=== PATIENT | female | born 1990 | race Caucasian/White ===

== ENCOUNTER → 2016-11-01 | Outpatient (CLI) | payer BC ==
[~2016-11-01] MED LIST: NORE5TAB5 PO
== END | disposition home or self-care (01) ==
LOC: C.PAPS 08:26
PROVIDERS: ATTEND Obstetrics & Gynecology
DX: Z01.419 Encounter for gynecological examination (general) (routine) without abnormal findings (principal)

== ENCOUNTER → 2017-11-07 | Outpatient (CLI) | payer BC | END | disposition home or self-care (01) | LOC: C.PAPS 09:39 | PROVIDERS: ATTEND Obstetrics & Gynecology | DX: Z01.419 Encounter for gynecological examination (general) (routine) without abnormal findings (principal) ==

== ENCOUNTER → 2018-03-17 | Outpatient (CLI) | payer BC ==
[~2018-03-17] MED LIST changes: +METO-157 PO; -NORE5TAB5 PO; +ONDA-170 PO; +PRENTAB26 PO
[2018-03-17 12:21] LABS: BASO % 0.1 %; BASO ABS # 0.01 K/uL (0-0.2); EOS % 0.6 %; EOS ABS # 0.05 K/uL (0-0.5); HEMATOCRIT 38.6 % (37-47); HEMOGLOBIN 13.5 g/dL (12.0-16.0); IG# 0.01 K/uL (0.00-0.02); LYMPH % 15.5 %; LYMPH ABS # 1.39 K/uL (1.2-3.4); MEAN CELL VOLUME 89.1 fL (80-100); MEAN CORPUSCULAR HEMOGLOBIN 31.2 pg (25-34); MEAN PLATELET VOLUME 10.4 fL (7.4-10.4); MONO % 5.2 %; MONO ABS # 0.47 K/uL (0.11-0.59); NEUT % 78.5 %; NEUT ABS # 7.03 K/uL (1.4-6.5); PLATELET COUNT 184 K/uL (130-400); RED CELL DISTRIBUTION WIDTH CV 12.8 % (11.5-14.5); RED CELL DISTRIBUTION WIDTH SD 41.5 fL (36.4-46.3); WHITE BLOOD COUNT 8.96 K/uL (4.8-10.8)
== END | disposition home or self-care (01) ==
LOC: C.LAB 10:48
PROVIDERS: ATTEND Obstetrics & Gynecology
DX: Z34.82 Encounter for supervision of other normal pregnancy, second trimester (principal)

== ENCOUNTER 2018-08-04 20:11 | Observation (INO) | END 2018-08-07 12:10 | disposition home or self-care (01) | LOC: OPB 20:11 → 4S1 20:11 → 4S2 08-05 15:45 ==

== ENCOUNTER 2018-08-26 20:09 | Inpatient (IN) ==
--- NOTE | 2018-08-13 11:43 | History and Physical Report ---
DATE OF ADMISSION: 08/29/2018 CHIEF COMPLAINT: Persistent nausea and vomiting, repeat section. HISTORY OF PRESENT ILLNESS: The patient is a 28-year-old 3, para 2. She has a history of a shoulder dystocia with her first associated with a broken clavicle. She had a history of a previous section. She has history of endometriosis. All of her pregnancies were complicated by persistent nausea and vomiting, resistant to treatment. She has nausea and vomiting in her entire and it does not subside until after delivery. Present has been well dated with a first trimester ultrasound. She is due 09/02/2018. She has had a hard time with nausea and vomiting and episodes of dehydration. She has had 4 hospitalizations during her course for symptomatic dehydration and she is presently being scheduled for repeat low segment section. PAST MEDICAL HISTORY: She has 2 girls in good health. ALLERGIES: She has no known drug allergies. PAST SURGICAL HISTORY: She has had 2 laparoscopies, she has endometriosis. She has had her gallbladder removed. She has had a previous . She has had a tonsillectomy and adenoidectomy. She has a history of migraines. SOCIAL HISTORY: No smoking, no alcohol intake. 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 FAMILY HISTORY: Mom is 58, had DCIS, diagnosed at age 54. Dad is 58. Two brothers, 25 years old twins in good health. REVIEW OF SYSTEMS: History of migraines. No history of frequent or severe bladder infections, ear infections, nosebleed, sore throats. PHYSICAL EXAMINATION: GENERAL: Well-developed, well-nourished 28-year-old white female, alert, oriented x3 and cooperative in no acute distress. EYES: Conjunctivae are pink. Sclerae white, no evidence of jaundice. EARS: Had normal light reflex bilaterally. NOSE: Had normal mucosa. Septum is midline. There were no polyps. THROAT: No erythema or evidence of infection. Teeth are in good state of repair. HEAD: Normocephalic, normal distribution of hair. NECK: Supple. Trachea midline. Thyroid is not enlarged. There is no adenopathy appreciated. Both carotids are of good intensity. CHEST: Clear to auscultation and percussion. No wheezes, rales or rhonchi appreciated. HEART: Had regular rhythm. S1, S2 are normal. BREASTS: Normal. ABDOMEN: Soft and nontender. There is a term size fetus, vertex position, nontender, no CVA tenderness. PELVIC: Cervix to be posterior, closed, vertex presentation, floating. MUSCULOSKELETAL: Revealed no calf tenderness. IMPRESSIONS OF THIS CASE: History of shoulder dystocia associated with a broken clavicle, previous section, 2 previous diagnostic laparoscopies, history of symptomatic endometriosis, history of cholecystectomy, history of a tonsillectomy and adenoidectomy, previous section, intrauterine at term, history of hyperemesis gravidarum, history of several hospitalizations during for dehydration.
--- NOTE | 2018-08-21 12:08 | Anesthesiology Consultation ---
Date of Service August 21, 2018 Assessment & Plan (1) Encounter for pre-operative examination: Chart Review Chart Review: Acceptable Risk for Surgery (PENDING PREOP LABS (DONE [facility] 08/21/18 )) and Patient seen in Pre Admission Testing Teaching & Discussion Pre-Anesthesia Teaching/Discussion Notes: Instructed NPO after midnight before surgery,except medications with 15 cc of water. Medication instructions provided according to the PAT guidelines. History Surgery Operation Date: 08/27/18 07:30 Proposed Procedures p Section in LD - Jh Nelson MD Height/Weight Height: 5 ft 1 in Weight: 77.3 kg Allergies Allergy/AdvReac Type Severity Reaction Status Date / Time No Known Allergies Allergy Verified 08/15/18 10:04 Medications Home Medications Medication Instructions Recorded Confirmed Last Taken PNV cmb#95-ferrous fumarate-FA 1 dose PO DAILY 08/15/18 08/15/18 Unknown [] metoclopramide HCl [Reglan] 1 dose PO UD PRN 08/15/18 08/15/18 Unknown ondansetron HCl [Zofran] 4 mg PO UD PRN 08/15/18 08/15/18 Unknown potassium 1 dose PO BID 08/15/18 08/15/18 Unknown promethazine [Phenergan] 1 dose UD PRN 08/15/18 08/15/18 Unknown Past Medical History Medical History Endometriosis History of kidney stones Hyperemesis S/P IV FLUIDS SCHEDULED AT [facility] 08/15/18; IMPROVED Migraine Past Family History Family History Mother Family history of breast cancer Past Surgical History Surgical History History of section History of endoscopy History of laparoscopic cholecystectomy 11/19/15= D&C, LAPAROSCOPY, BLAS= GRADE VIEW 2, MAC 3, ETT 7.5 AT [facility] History of laparoscopy 2/2 ENDOMETRIOSIS History of ovarian cystectomy History of tonsillectomy and adenoidectomy Past Anesthesia History No Family Hx of Anesthesia Complications and Other "Slow to wake" with 2014 cholecystectomy. No issues with subsequent GA; 2016 D&C , laparoscopy, BLAS at [facility] with no noted anesthetic complications per anetshesia progress note. C/S (2014)- 2/2 shoulder dystocia with prior vaginal delivery. Per patient, good pain control but dyspnea after SAB (SAB x1 attempt at L3-L4 at [facility]). Per patient, hypotension with c/s; no apparent anesthetic complications per anesthesia progress notes. Baseline BP low to normal per patient. History of PONV Yes Motion Sickness Screening History of Motion Sickness: Yes Social History Smoking Status: Never smoker Do You Dip or Chew Tobacco: No Hx Alcohol Use: No Hx Substance Use: No substance use type: does not use Exercise / Class Metabolic Activity II 4-5 Yardwork/Stairs/Walk up hill Review of Systems Cough improved s/p abx. Patient denies chest pain, shortness of breath, dyspnea on exertion, wheezing, palpitations. Physical Exam Vital Signs VITALS BP 99/65 (chronic low to normal BP per patient) P 88 TEMP 98.6 SP02 98%RA RESP 16 Full neck and c-spine range of motion. Full TMJ range of motion. TMD 4 finger breaths Mallampati Score 3 Dentition: intact Lungs: clear throughout to auscultation Cardiac: regular rate and rhythm, no murmurs noted Spine: normal Extremities: no edema
--- NOTE | 2018-08-21 12:22 | PAT Medication Instructions ---
Medication Instructions Date of Service August 21, 2018 Home Medications PNV cmb#95-ferrous fumarate-FA 1 dose PO DAILY metoclopramide HCl [Reglan] 1 dose PO UD PRN ondansetron HCl [Zofran] 4 mg PO UD PRN potassium 1 dose PO BID promethazine [Phenergan] 1 dose UD PRN DO NOT take the morning of surgery PNV cmb#95-ferrous fumarate-FA 1 dose PO DAILY metoclopramide HCl [Reglan] 1 dose PO UD PRN potassium 1 dose PO BID Take morning of surgery With a small sip of water, OTHERWISE NOTHING TO EAT OR DRINK AFTER MIDNIGHT: ondansetron HCl [Zofran] 4 mg PO UD PRN (if needed) promethazine [Phenergan] 1 dose UD PRN (if needed) Other Notes If you have any questions please call us at [phone] or [phone] or [phone] or [phone]
[2018-08-21 13:03] LABS: Basophils # (auto) 0.02 K/uL (0-0.2); Basophils % (auto) 0.2 %; Eosinophils # (auto) 0.07 K/uL (0-0.5); Eosinophils % (auto) 0.6 %; Immature Granulocytes # (auto) 0.13 K/uL (0.00-0.02); Immature Granulocytes % (auto) 1.2 %; Lymphocytes # (auto) 1.81 K/uL (1.2-3.4); Lymphocytes % (auto) 16.5 %; Mean Corpuscular Hgb Conc 33.3 g/dL (32-36); Mean Corpuscular Volume 89.6 fL (80-100); Mean Platelet Volume 11.2 fL (7.4-10.4); Monocytes # (auto) 1.06 K/uL (0.11-0.59); Monocytes % (auto) 9.6 %; Neutrophils % (auto) 71.9 %; Platelet Count 169 K/uL (130-400); RDW Standard Deviation 46.5 fL (36.4-46.3); Red Blood Count 4.02 M/uL (4.2-5.4); White Blood Count 10.99 K/uL (4.8-10.8)
[2018-08-21 13:11] LABS: BUN Creatinine Ratio 11.5 (10-20); Blood Urea Nitrogen 5 mg/dl (7-18); Carbon Dioxide 24 mmol/L (21-32); Chloride 106 mmol/L (98-107); Creatinine Clr Calc Pharmacy 169.8 ml/min; Est GFR (African American) > 150.0; Est GFR (Non-African American) 134.4; Glucose 82 mg/dl (70-99); Potassium 3.9 mmol/L (3.5-5.1); Sodium 134 mmol/L (136-145)
[2018-08-21 13:17] LABS: INR 0.9 (0.9-1.1); Partial Thromboplastin Ratio 0.9; Prothrombin Time 9.5 Seconds (9.0-12.0)
[2018-08-26] MEDS ORDERED: LACTATED RINGER'S 1,000 ML IV SCH ×3 (20:30→23:45)
[2018-08-26 20:51] LABS: Basophils # (auto) 0.02 K/uL (0-0.2); Basophils % (auto) 0.1 %; Eosinophils # (auto) 0.06 K/uL (0-0.5); Eosinophils % (auto) 0.4 %; Hematocrit (blood only) 34.9 % (37-47); Hemoglobin 11.6 g/dL (12.0-16.0); Immature Granulocytes # (auto) 0.11 K/uL (0.00-0.02); Immature Granulocytes % (auto) 0.8 %; Lymphocytes # (auto) 2.05 K/uL (1.2-3.4); Lymphocytes % (auto) 15.4 %; Mean Corpuscular Volume 88.4 fL (80-100); Mean Platelet Volume 11.2 fL (7.4-10.4); Monocytes # (auto) 1.42 K/uL (0.11-0.59); Monocytes % (auto) 10.6 %; Neutrophils # (auto) 9.69 K/uL (1.4-6.5); Neutrophils % (auto) 72.7 %; Platelet Count 184 K/uL (130-400); RDW Coefficient of Variation 13.9 % (11.5-14.5); RDW Standard Deviation 44.8 fL (36.4-46.3); Red Blood Count 3.95 M/uL (4.2-5.4); White Blood Count 13.35 K/uL (4.8-10.8)
[2018-08-26 20:53] LABS: Mean Corpuscular Hgb Conc 33.2 g/dL (32-36)
[2018-08-26 21:04] LABS: Partial Thromboplastin Ratio 0.9; Partial Thromboplastin Time 23.9 Seconds (21.0-31.0); Prothrombin Time 9.8 Seconds (9.0-12.0)
[2018-08-26 21:10] LABS: BUN Creatinine Ratio 14.1 (10-20); Blood Urea Nitrogen 7 mg/dl (7-18); Calcium 9.1 mg/dl (8.5-10.1); Carbon Dioxide 22 mmol/L (21-32); Chloride 103 mmol/L (98-107); Creatinine Clr Calc Pharmacy 156.2 ml/min; Est GFR (African American) > 150.0; Est GFR (Non-African American) 130.8; Glucose 70 mg/dl (70-99); Potassium 3.3 mmol/L (3.5-5.1); Sodium 136 mmol/L (136-145)
[2018-08-26] MEDS ORDERED: cefOXitin 2,000 MG in DEXTROSE 5% 50 ML IV SCH (21:30)
[2018-08-26] MEDS ORDERED: CITRIC ACID/SODIUM CITRATE 15 ML UDC PO SCH (21:30)
--- NOTE | 2018-08-26 21:30 | Anesthesiology Consultation ---
Date of Service August 26, 2018 Assessment & Plan (1) Encounter for pre-operative examination: Chart Review Chart Review: Acceptable Risk for Surgery and Patient NOT seen in Pre Admission Testing Consults Requested none NPO Date Last Intake of Fluids: 08/26/18 Time Last Intake of Fluids: 16:00 Date Last Intake of Solids: 08/26/18 Time Last Intake of Solids: 16:00 History Surgery Operation Date: 08/26/18 20:15 Proposed Procedures p Section in LD - Jh Nelson MD Operation Date: 08/27/18 07:30 Proposed Procedures p Section - Jh Nelson MD Height/Weight Height: 5 ft 1 in Weight: 77.3 kg Allergies Allergy/AdvReac Type Severity Reaction Status Date / Time No Known Allergies Allergy Verified 08/26/18 20:34 Medications Home Medications Medication Instructions Recorded Confirmed Last Taken PNV cmb#95-ferrous fumarate-FA 1 dose PO DAILY 08/15/18 08/26/18 08/25/18 20:00 [] metoclopramide HCl [Reglan] 1 dose PO UD PRN 08/15/18 08/26/18 08/19/18 ondansetron HCl [Zofran] 4 mg PO UD PRN 08/15/18 08/26/18 08/23/18 potassium 1 dose PO BID 08/15/18 08/26/18 08/25/18 20:00 promethazine [Phenergan] 1 dose UD PRN 08/15/18 08/23/18 Unknown Active Medications Generic Name Dose Route Start Last Admin Trade Name Freq PRN Reason Stop Dose Admin Lactated Ringer's 1,000 mls @ 125 mls/hr 08/26/18 21:19 08/26/18 21:31 Lr IV 09/25/18 21:18 125 mls/hr .Q8H WILFRED Administration Past Medical History Medical History Hyperemesis gravidarum Endometriosis History of kidney stones Hyperemesis S/P IV FLUIDS SCHEDULED AT [facility] 08/15/18; IMPROVED Migraine Past Family History Family History Mother Family history of breast cancer Past Surgical History Surgical History History of section History of endoscopy History of laparoscopic cholecystectomy 11/19/15= D&C, LAPAROSCOPY, BLAS= GRADE VIEW 2, MAC 3, ETT 7.5 AT [facility] History of laparoscopy 2/2 ENDOMETRIOSIS History of ovarian cystectomy History of tonsillectomy and adenoidectomy Past Anesthesia History "Slow to wake" with 2014 cholecystectomy. No issues with subsequent GA; 2015 D&C , laparoscopy, BLAS at [facility] with no noted anesthetic complications per anetshesia progress note. C/S (2014)- 2/2 shoulder dystocia with prior vaginal delivery. Per patient, good pain control but dyspnea after SAB (SAB x1 attempt at L3-L4 at [facility]). Per patient, hypotension with c/s; no apparent anesthetic complications per anesthesia progress notes. Baseline BP low to normal per patient. Social History Smoking Status: Never smoker Do You Dip or Chew Tobacco: No Hx Alcohol Use: No Hx Substance Use: No substance use type: does not use Review of Systems Respiratory: no cough and no dyspnea Cardiovascular: no chest pain Physical Exam Vital Signs Last Vital Signs Temp 36.8 C 08/26/18 20:41 Pulse 113 H 08/26/18 20:41 Resp 18 08/26/18 20:41 BP 115/73 08/26/18 20:41 Testing Laboratory Results 08/26/18 20:36 08/26/18 20:36 Blood Type O Negative 08/21/18 12:25 Antibody Screen POSITIVE A 08/21/18 12:25 PT 9.8 Seconds (9.0-12.0) 08/26/18 20:36 INR 1.0 (0.9-1.1) 08/26/18 20:36 APTT 23.9 Seconds (21.0-31.0) 08/26/18 20:36
--- NOTE | 2018-08-26 21:41 | Anesthesiology Consultation ---
Date of Service August 26, 2018 Assessment & Plan Chart Review Chart Review: Acceptable Risk for Surgery and Patient NOT seen in Pre Admission Testing Consults Requested none ASA ASA2 NPO Date Last Intake of Fluids: 08/26/18 Time Last Intake of Fluids: 16:00 Date Last Intake of Solids: 08/26/18 Time Last Intake of Solids: 16:00 History Surgery Operation Date: 08/26/18 20:15 Proposed Procedures p Section in LD - Jh Nelson MD Operation Date: 08/27/18 07:30 Proposed Procedures p Section - Jh Nelson MD Height/Weight Height: 5 ft 1 in Weight: 77.3 kg Allergies Allergy/AdvReac Type Severity Reaction Status Date / Time No Known Allergies Allergy Verified 08/26/18 20:34 Medications Home Medications Medication Instructions Recorded Confirmed Last Taken PNV cmb#95-ferrous fumarate-FA 1 dose PO DAILY 08/15/18 08/26/18 08/25/18 20:00 [] metoclopramide HCl [Reglan] 1 dose PO UD PRN 08/15/18 08/26/18 08/19/18 ondansetron HCl [Zofran] 4 mg PO UD PRN 08/15/18 08/26/18 08/23/18 potassium 1 dose PO BID 08/15/18 08/26/18 08/25/18 20:00 promethazine [Phenergan] 1 dose UD PRN 08/15/18 08/23/18 Unknown Active Medications Generic Name Dose Route Start Last Admin Trade Name Freq PRN Reason Stop Dose Admin Lactated Ringer's 1,000 mls @ 125 mls/hr 08/26/18 21:19 08/26/18 21:31 Lr IV 09/25/18 21:18 125 mls/hr .Q8H WILFRED Administration Past Medical History Medical History Hyperemesis gravidarum Endometriosis History of kidney stones Hyperemesis S/P IV FLUIDS SCHEDULED AT [facility] 08/15/18; IMPROVED Migraine Past Family History Family History Mother Family history of breast cancer Past Surgical History Surgical History History of section History of endoscopy History of laparoscopic cholecystectomy 11/19/15= D&C, LAPAROSCOPY, BLAS= GRADE VIEW 2, MAC 3, ETT 7.5 AT [facility] History of laparoscopy 2/2 ENDOMETRIOSIS History of ovarian cystectomy History of tonsillectomy and adenoidectomy Past Anesthesia History "Slow to wake" with 2014 cholecystectomy. No issues with subsequent GA; 2016 D&C , laparoscopy, BLAS at [facility] with no noted anesthetic complications per anetshesia progress note. C/S (2014)- 2/2 shoulder dystocia with prior vaginal delivery. Per patient, good pain control but dyspnea after SAB (SAB x1 attempt at L3-L4 at [facility]). Per patient, hypotension with c/s; no apparent anesthetic complications per anesthesia progress notes. Baseline BP low to normal per patient. Social History Smoking Status: Never smoker Do You Dip or Chew Tobacco: No Hx Alcohol Use: No Hx Substance Use: No substance use type: does not use Physical Exam Vital Signs Last Vital Signs Temp 36.8 C 08/26/18 20:41 Pulse 113 H 08/26/18 20:41 Resp 18 08/26/18 20:41 BP 115/73 08/26/18 20:41 Testing Laboratory Results 08/26/18 20:36 08/26/18 20:36 Blood Type O Negative 08/21/18 12:25 Antibody Screen POSITIVE A 08/21/18 12:25 PT 9.8 Seconds (9.0-12.0) 08/26/18 20:36 INR 1.0 (0.9-1.1) 08/26/18 20:36 APTT 23.9 Seconds (21.0-31.0) 08/26/18 20:36
[2018-08-26] MEDS ORDERED: NALOXONE HCL 0.4 MG/1 ML VIAL/CARP IV PRN (21:43)
[2018-08-26] MEDS ORDERED: NALOXONE HCL 0.08 MG in SYRINGE 1.8 ML IV PRN (21:43)
[2018-08-26] MEDS ORDERED: ePHEDrine sulfate 50 MG/ML AMP IV PRN (21:43)
[2018-08-26] MEDS ORDERED: NALOXONE HCL 1 MG in SODIUM CHLORIDE 0.9% 1000ML 1,000 ML IV PRN (21:43)
[2018-08-26] MEDS ORDERED: LACTATED RINGER'S 500 ML IV PRN (21:43)
[2018-08-26] MEDS ORDERED: ONDANSETRON INJ 2 MG/ML 2 ML VIAL IV PRN (21:43)
[2018-08-26] MEDS ORDERED: MoRPHine SULFATE PF 1 MG/ML 10 ML AMP/VIAL INT SPINAL ONE (21:43)
[2018-08-26] MEDS ORDERED: MoRPHine SULFATE 2 MG/ML CARP IV PRN (21:43)
[2018-08-26] MEDS ORDERED: DC INTRASPINAL MORPHINE SCH (21:45)
[2018-08-26] MEDS ORDERED: NO NARCOTICS OR SEDATIVES SCH (21:45)
[2018-08-26] MEDS ORDERED: SODIUM CHLORIDE 0.9% 1000ML 1,000 ML IV SCH (21:45)
[2018-08-26] MEDS ORDERED: MoRPHine SULFATE PF 1 MG/ML 10 ML AMP/VIAL ONE (21:49)
[2018-08-26] MEDS ORDERED: OXYTOCIN 10 UNITS/ML VIAL ONE ×2 (23:15→23:38)
[2018-08-26] MEDS ORDERED: ONDANSETRON INJ 2 MG/ML 2 ML VIAL ONE (23:38)
[2018-08-26] MEDS ORDERED: SENNA 8.6 MG TAB PO PRN (23:49)
[2018-08-26] MEDS ORDERED: BENZOCAINE 20% AER SPR 82.5 GM CAN EXT PRN (23:49)
[2018-08-26] MEDS ORDERED: PROMETHAZINE HCL 25 MG in SODIUM CHLORIDE 0.9% 50 ML IV PRN (23:49)
[2018-08-26] MEDS ORDERED: DIPHTHERIA/TETANUS/PERTUSSIS 0.5 ML SYR/VIAL IM ONE (23:49)
[2018-08-26] MEDS ORDERED: HYDROCORTISONE ACETATE 25 MG SUPP PR PRN (23:49)
[2018-08-26] MEDS ORDERED: SUPERCREAM 0.870% 15 GM JAR EXT PRN (23:49)
[2018-08-26] MEDS ORDERED: MAGNESIUM HYDROXIDE SUSP 30 ML UDC PO PRN (23:49)
--- NOTE | 2018-08-27 00:01 | Post Operative Brief Note ---
Immediate Post Op Note v1 Date of Surgery August 26, 2018 Pre & Post Diagnosis Operation Date: 08/26/18 20:15 <No data on this case meets the specified criteria> Operation Date: 08/27/18 07:30 <No data on this case meets the specified criteria> Procedure Operation Date: 08/26/18 20:15 <No data on this case meets the specified criteria> Operation Date: 08/27/18 07:30 <No data on this case meets the specified criteria> Surgeon Jh Nelson MD Tobacco Scrap Sifter dr dean Estimated Blood Loss 700 Findings Consistent with Post-Op Diagnosis clear amniotic fluid Fluids 2200 Specimens placenta Drains Delarosa Catheter Complications none Disposition Accompanied Patient To Recovery: No Disposition: L&D Overlapping Procedure I was immediately available: during the entire case.
--- NOTE | 2018-08-27 00:10 | Anesthesiology Progress Note ---
Date of Service August 27, 2018 Anesthesia Post Procedure Vital Signs Vital Signs: Temp Pulse Resp BP Pulse Ox 08/27/18 00:04 82 96 08/27/18 00:03 101 H 111/53 L 08/26/18 20:41 36.8 C 113 H 18 115/73 08/26/18 20:18 113 H 115/73 Notes Mental Status: alert / awake / arousable Patient Amnestic to Procedure: Yes Nausea / Vomiting: adequately controlled Pain: adequately controlled Airway Patency, RR, SpO2: stable & adequate BP & HR: stable & adequate Hydration State: stable & adequate Anesthetic Complications: no major complications apparent and Pt Satisfied with anesthetic care
[2018-08-27] MEDS: KETOROLAC 30 MG/ML VIAL IV PRN ×3 (00:49→19:25)
[2018-08-27] MEDS: DiphenhydrAMINE HCL 50 MG/ML VIAL IV PRN ×2 (00:55→06:39)
[2018-08-27] MEDS: OXYTOCIN 20 UNITS in LACTATED RINGER'S 1,000 ML IV SCH ×2 (00:58→10:35)
[2018-08-27] MEDS: MEPERIDINE HCL 25 MG/ML CARP IV PRN ×2 (02:13→03:53)
[2018-08-27] MEDS: NALBUPHINE HCL INJ 10 MG/ML AMP IV PRN ×2 (02:16→03:53)
--- NOTE | 2018-08-27 04:44 | Operative Report ---
DATE OF OPERATION: 08/27/2018 PROCEDURE: Repeat low segment section. INDICATIONS FOR SURGERY: Previous , active labor, intrauterine 39 weeks gestation, prior history of shoulder dystocia. PREOPERATIVE DIAGNOSES: Previous , shoulder dystocia, labor. SURGEON: Masood MATHEWS MD PST MANAGER: Cal Alcala MD ESTIMATED BLOOD LOSS: 700 mL. ANESTHESIA: Spinal. OPERATIVE FINDINGS AND PROCEDURE: The patient was brought to the OR table, correctly identified by armband and conversation. It took several attempts to get spinal anesthesia in. Once it was in, the Delarosa catheter was inserted into the bladder, connected to gravity drainage. Lower abdomen and upper thigh was painted with an alcohol based sterilizing solution. The patient was draped in the usual sterile fashion. Level was checked and found to be adequate. An incision was made through a previous Pfannenstiel scar, was carried down to the anterior fascia by sharp dissection. Hemostasis was secured by electrocauterization. Fascia was incised transversely, from the underlying muscle by blunt and sharp dissection. Recti muscles were in the midline exposing peritoneum, which was carefully raised and entered. Incision was made above the vesicouterine fold. Lower uterine segment was scored with a knife and then entered with scissors. Clear amniotic fluid was seen at this time. Whittling Room Operator's hand was inserted into uterine cavity. The vectis retractor was inserted to the head and with fundal pressure, the was delivered. Shoulders were delivered without difficulty. was suctioned through the mouth and the nose. Cord was clamped and cut. The infant was immediately attended to by the local company refrigerated truck driver who was present and scrubbed at the time of delivery. Cord blood was taken. The placenta was removed manually. Uterus, tubes, and ovaries were brought out through the incision. The myometrium was approximated with continuous suture of chromic catgut. A layer of suture was placed over the myometrial approximation to approximate the fascial layer, this was heavy duty Vicryl, and then the peritoneal edges were restored and a bladder flap was restored with a running 3-0 chromic. Pelvis was cleansed of all blood clots and debris. Tubes and ovaries were inspected and found to be normal. Uterus, tubes, and ovaries were inserted into the abdominal cavity. Careful anatomical approximation of the anterior abdominal wall was performed. Peritoneum was closed with a continuous suture of chromic catgut. Recti muscles were approximated with interrupted [id number] suture of chromic catgut. The fascia was closed with continuous interlocking suture of Vicryl on each side, tied in the midline. SubQ was approximated with plain and skin edges were approximated with staple clips. The patient tolerated the procedure well and left the OR in good condition. I attest to the content of the Intraoperative Record and any orders documented therein. Any exception s are noted below.
[2018-08-27 07:22] LABS: Basophils # (auto) 0.01 K/uL (0-0.2); Basophils % (auto) 0.1 %; Eosinophils # (auto) 0.05 K/uL (0-0.5); Eosinophils % (auto) 0.4 %; Hematocrit (blood only) 29.4 % (37-47); Hemoglobin 9.8 g/dL (12.0-16.0); Immature Granulocytes # (auto) 0.07 K/uL (0.00-0.02); Immature Granulocytes % (auto) 0.5 %; Mean Corpuscular Hgb Conc 33.3 g/dL (32-36); Mean Platelet Volume 10.7 fL (7.4-10.4); Monocytes # (auto) 1.25 K/uL (0.11-0.59); Monocytes % (auto) 8.8 %; Neutrophils # (auto) 11.07 K/uL (1.4-6.5); Neutrophils % (auto) 78.2 %; Platelet Count 153 K/uL (130-400); RDW Coefficient of Variation 14.1 % (11.5-14.5); Red Blood Count 3.34 M/uL (4.2-5.4); White Blood Count 14.15 K/uL (4.8-10.8)
--- NOTE | 2018-08-27 10:28 | Obstetrical Progress Note ---
Date of Service August 27, 2018 Physical Exam 2 Vital Signs (Past 24 Hours): Last Vital Signs Temp 36.8 C 08/27/18 09:20 Pulse 73 08/27/18 09:20 Resp 18 08/27/18 09:20 BP 95/58 L 08/27/18 09:20 Pulse Ox 97 08/27/18 09:20 Physical Exam: abdomen soft and non tender bowel sounds present vaginal bleeding scant urine clear out put good no calf tenderness
--- NOTE | 2018-08-27 12:38 | Anesthesiology Progress Note ---
Date of Service August 27, 2018 Anesthesia Post Procedure Vital Signs Vital Signs: Temp Pulse Pulse Resp BP BP Pulse Ox 08/27/18 09:20 98.2 F 73 18 95/58 L 97 08/27/18 06:15 16 95 08/27/18 05:20 18 98 08/27/18 04:15 16 96 08/27/18 03:30 98.2 F 83 18 91/50 L 98 08/27/18 03:24 99 H 99 08/27/18 03:19 96 H 98 08/27/18 03:14 84 96 08/27/18 03:11 98.1 F 78 71 18 96/55 L 96/55 L 96 08/27/18 03:09 83 95 08/27/18 03:04 87 96 08/27/18 03:00 87 94 08/27/18 02:59 88 96 08/27/18 02:54 96 H 95 08/27/18 02:49 79 95 08/27/18 02:44 84 99 08/27/18 02:41 86 113/64 08/27/18 02:39 82 96 08/27/18 02:34 80 97 08/27/18 02:29 73 95 08/27/18 02:27 75 93 08/27/18 02:24 78 95 08/27/18 02:19 73 99 08/27/18 02:14 69 100 08/27/18 02:11 65 93/51 L 08/27/18 02:09 70 100 08/27/18 02:04 68 100 08/27/18 02:02 18 08/27/18 01:59 64 100 08/27/18 01:56 64 109/57 L 08/27/18 01:54 70 100 08/27/18 01:49 84 100 08/27/18 01:44 68 100 08/27/18 01:41 187 H 165/106 H 08/27/18 01:39 75 100 08/27/18 01:34 69 100 08/27/18 01:32 18 08/27/18 01:29 69 100 08/27/18 01:24 78 100 08/27/18 01:19 67 100 08/27/18 01:14 67 100 08/27/18 01:13 76 97/54 L 08/27/18 01:09 76 100 08/27/18 01:05 85 219/128 H 08/27/18 01:04 62 99 08/27/18 01:02 16 08/27/18 00:59 75 98 08/27/18 00:54 72 97 08/27/18 00:52 18 08/27/18 00:49 104 H 96 08/27/18 00:44 79 144/94 H 96 08/27/18 00:42 18 08/27/18 00:39 81 96 08/27/18 00:34 90 96 08/27/18 00:32 18 08/27/18 00:29 100 H 96 08/27/18 00:24 90 150/76 H 96 08/27/18 00:19 83 97 08/27/18 00:14 88 101/63 97 08/27/18 00:09 92 H 95 08/27/18 00:04 82 96 08/27/18 00:03 101 H 111/53 L 08/27/18 00:02 97.7 F 18 08/26/18 20:41 98.2 F 113 H 18 115/73 08/26/18 20:18 113 H 115/73 Pain Intensity Bilateral Abdomen: Pain Intensity: 6 Notes Mental Status: alert / awake / arousable and participated in evaluation Nausea / Vomiting: adequately controlled Pain: adequately controlled Airway Patency, RR, SpO2: stable & adequate BP & HR: stable & adequate Hydration State: stable & adequate Neuraxial Anesthesia: was administered, sensory block resolved and see Notes below Anesthetic Complications: see Notes below Notes: The patient was evaluated POD #1. The patient states having a crepitus like sensation on the R side of her back near the spinal insertion site. She also states some paresthesias from the needle insertion site down to her R buttock. She denies any headache or lower extremity numbness or weakness. She has some back tenderness near the spinal insertion sites. The patients lower extremities are neurologically intact. The patient has not started ambulating yet due to duramorph precautions. I instructed her to notify the nurse if she has any issues with ambulating. I told her that we would evaluate her again tomorrow. I spoke with the labor and delivery nurse to update my conversation with the patient.
[2018-08-27] MEDS: FERROUS SULFATE 325 MG TAB PO SCH (13:20)
[2018-08-27] MEDS: DOCUSATE SODIUM 100 MG CAP PO SCH ×2 (13:20→21:35)
[2018-08-27] MEDS: SIMETHICONE 80 MG CHEW PO SCH ×4 (13:20→21:35)
[2018-08-27] MEDS: PRENATAL VITAMIN 1 TAB PO SCH (13:20)
[2018-08-27] MEDS ORDERED: BISACODYL 5 MG TABEC PO SCH (20:00)
[2018-08-27] MEDS ORDERED: Nursing to Pharmacy Communication ONE (20:16)
[2018-08-27] MEDS ORDERED: ZOLPIDEM TARTRATE 5 MG TAB PO PRN (21:42)
[2018-08-27] MEDS ORDERED: MEPERIDINE HCL 50 MG/ML CARP IV PRN (21:42)
[2018-08-27] MEDS ORDERED: KETOROLAC 30 MG/ML VIAL IV PRN (21:42)
[2018-08-27] MEDS ORDERED: OXYCODONE/ACETAMINOPHEN 5mg/325mg TAB PO PRN (21:42)
[2018-08-27] MEDS ORDERED: ONDANSETRON INJ 2 MG/ML 2 ML VIAL IV PRN (21:42)
[2018-08-27] MEDS ORDERED: DiphenhydrAMINE HCL 50 MG/ML VIAL IV PRN (21:42)
[2018-08-28] MEDS: IBUPROFEN 600 MG TAB PO PRN ×5 (00:26→23:55)
[2018-08-28] MEDS: OXYCODONE/ACETAMINOPHEN 5mg/325mg TAB PO PRN ×6 (00:27→20:14)
[2018-08-28] MEDS: FERROUS SULFATE 325 MG TAB PO SCH (08:27)
[2018-08-28] MEDS: GABAPENTIN 300 MG CAP PO SCH ×2 (08:27→21:11)
[2018-08-28] MEDS: SIMETHICONE 80 MG CHEW PO SCH ×4 (08:27→21:11)
[2018-08-28] MEDS: PRENATAL VITAMIN 1 TAB PO SCH (08:27)
[2018-08-28] MEDS: DOCUSATE SODIUM 100 MG CAP PO SCH ×2 (08:28→21:11)
--- NOTE | 2018-08-28 08:30 | Anesthesiology Progress Note ---
Date of Service August 28, 2018 Subjective Pt is POD #2 s/p under SAB. Pt is still having a lot of tenderness on the right side of her back along the puncture verduzco. Pt also reports having intermittent numbness and burning sensation down to her right buttock. Burning sensation has not gotten worse but has not improved. She also has decreased sensation on the lateral side of her right thigh. On strength evaluation, pt is 5/5 on both plantar flexion and extension (R and L), 5/5 extension/flexion of BLE., 4/5 on R hip flexion/extension, 5/5 on L hip flexion/extension. Pt states that she has been up and ambulating without noticing any weakness. Discussed with patient to report to the nurse if having any worsening symptoms. Also discussed with patient about consulting neurologist to evaluate her symptoms. Pt understood and agreed with plan. Plan was also discussed with the nursing staff. Physical Exam Vital Signs Last Vital Signs Temp 37.0 C 08/28/18 07:34 Pulse 71 08/28/18 07:34 Resp 18 08/28/18 07:34 BP 95/61 L 08/28/18 07:34 Pulse Ox 95 08/28/18 07:34 Results & Data Medications Administered Docusate Sodium (Colace) 100 mg PO BID [facility] Stop: 09/26/18 08:59 Last Admin: 08/27/18 21:35 Dose: 100 mg Admin: 08/27/18 13:20 Dose: Not Given Ferrous Sulfate (Feosol) 325 mg PO QAM WILFRED Stop: 09/26/18 08:59 Last Admin: 08/27/18 13:20 Dose: Not Given Lactated Ringer's (Lr) 1,000 mls @ 125 mls/hr IV .Q8H [facility] Stop: 09/25/18 21:18 Last Infusion: 08/26/18 21:41 Dose: 0 mls/hr Admin: 08/26/18 21:31 Dose: 125 mls/hr Promethazine HCl 25 mg/ Sodium (Chloride) 51 mls @ 204 mls/hr IV Q4H PRN PRN Reason: Nausea And Vomiting Stop: 09/25/18 23:48 Last Admin: 08/27/18 02:45 Dose: 204 mls/hr Ibuprofen (Motrin) 600 mg PO Q4H PRN PRN Reason: Pain Stop: 09/25/18 23:48 Last Admin: 08/28/18 04:19 Dose: 600 mg Admin: 08/28/18 00:26 Dose: 600 mg Oxycodone/Acetaminophen (Percocet 5mg/325mg) 1 - 2 tab PO Q4H PRN PRN Reason: Pain Stop: 09/10/18 20:19 Last Admin: 08/28/18 04:19 Dose: 1 tab Admin: 08/28/18 00:27 Dose: 1 tab Prenat Multivit/[place]/Iron/Folic Ac ( Vitamin) 1 tab PO QAM [facility] Stop: 09/26/18 08:59 Last Admin: 08/27/18 13:20 Dose: Not Given Simethicone (Mylicon) 80 mg PO QID [facility] Stop: 09/26/18 08:59 Last Admin: 08/27/18 21:35 Dose: 80 mg Admin: 08/27/18 17:59 Dose: 80 mg Admin: 08/27/18 17:33 Dose: Not Given Admin: 08/27/18 13:20 Dose: Not Given
[2018-08-28 09:02] LABS: Hemoglobin 9.9 g/dL (12.0-16.0)
--- NOTE | 2018-08-28 11:32 | Obstetrical Progress Note ---
Date of Service August 28, 2018 Physical Exam 2 Vital Signs (Past 24 Hours): Last Vital Signs Temp 37.0 C 08/28/18 07:34 Pulse 71 08/28/18 07:34 Resp 18 08/28/18 07:34 BP 95/61 L 08/28/18 07:34 Pulse Ox 95 08/28/18 07:34 Physical Exam: abdomen soft and non tender vaginal bleeding scant to moderate incision is clean and dry no calf tenderness patient complains of back pain
--- NOTE | 2018-08-28 15:30 | Anesthesiology Progress Note ---
Date of Service August 28, 2018 Post op day #2. The patient was standing and rocking the baby shifting her weight from her left foot to her right and back again. She complains of back pain on on her right lumber area with intermittent radiation to her right hip. Also complains of a pins and needles paresthesia over the right lateral hip. She does not have the sense of weakness in her hip when she ambulates. On physical exam I noted the following: PERRL, EOM intact,CN intact, nl finger to nose, nl balance with eyes closed and hands out in front, decreased soft touch and sharp touch right lateral proximal thigh and hip, nl sensation on left. + SLR on right, negative on left. Motor: shoulder abductors 5/5 B/L, elbow flexion 5- B/L, elbow extension 4/5 B/L. Right hip flexion 4- right, 4+ left. Hip extension 4 right, 5 left. Knee extension 5 B/L. Dorsiflexion 5 B/L. Plantar flexion 5 B/L. There was no foot drop. She has had one dose of neurontin 300 mg with some relief. A neurologist, Dr. Cueto has been consulted and will see her tomorrow morning. I will be making daily rounds on her. Physical Exam Vital Signs Last Vital Signs Temp 37.3 C 08/28/18 12:20 Pulse 87 08/28/18 12:20 Resp 18 08/28/18 12:20 BP 110/71 08/28/18 12:20 Pulse Ox 98 08/28/18 12:20 Results & Data Medications Administered Docusate Sodium (Colace) 100 mg PO BID [facility] Stop: 09/26/18 08:59 Last Admin: 08/28/18 08:28 Dose: 100 mg Admin: 08/27/18 21:35 Dose: 100 mg Admin: 08/27/18 13:20 Dose: Not Given Ferrous Sulfate (Feosol) 325 mg PO QAM [facility] Stop: 09/26/18 08:59 Last Admin: 08/28/18 08:27 Dose: 325 mg Admin: 08/27/18 13:20 Dose: Not Given Gabapentin (Neurontin) 300 mg PO BID [facility] Stop: 09/27/18 08:59 Last Admin: 08/28/18 08:27 Dose: 300 mg Lactated Ringer's (Lr) 1,000 mls @ 125 mls/hr IV .Q8H [facility] Stop: 09/25/18 21:18 Last Infusion: 08/26/18 21:41 Dose: 0 mls/hr Admin: 08/26/18 21:31 Dose: 125 mls/hr Promethazine HCl 25 mg/ Sodium (Chloride) 51 mls @ 204 mls/hr IV Q4H PRN PRN Reason: Nausea And Vomiting Stop: 09/25/18 23:48 Last Admin: 08/27/18 02:45 Dose: 204 mls/hr Ibuprofen (Motrin) 600 mg PO Q4H PRN PRN Reason: Pain Stop: 09/25/18 23:48 Last Admin: 08/28/18 14:28 Dose: 600 mg Admin: 08/28/18 10:20 Dose: 600 mg Admin: 08/28/18 04:19 Dose: 600 mg Admin: 08/28/18 00:26 Dose: 600 mg Oxycodone/Acetaminophen (Percocet 5mg/325mg) 1 - 2 tab PO Q4H PRN PRN Reason: Pain Stop: 09/10/18 20:19 Last Admin: 08/28/18 12:15 Dose: 1 tab Admin: 08/28/18 08:28 Dose: 1 tab Admin: 08/28/18 04:19 Dose: 1 tab Admin: 08/28/18 00:27 Dose: 1 tab Prenat Multivit/Lowes/Iron/Folic Ac ( Vitamin) 1 tab PO QAM [facility] Stop: 09/26/18 08:59 Last Admin: 08/28/18 08:27 Dose: 1 tab Admin: 08/27/18 13:20 Dose: Not Given Simethicone (Mylicon) 80 mg PO QID [facility] Stop: 09/26/18 08:59 Last Admin: 08/28/18 12:19 Dose: 80 mg Admin: 08/28/18 08:27 Dose: 80 mg Admin: 08/27/18 21:35 Dose: 80 mg Admin: 08/27/18 17:59 Dose: 80 mg Admin: 08/27/18 17:33 Dose: Not Given Admin: 08/27/18 13:20 Dose: Not Given
[2018-08-28] MEDS ORDERED: BISACODYL 10 MG SUPP PR PRN (23:49)
[2018-08-29] MEDS: OXYCODONE/ACETAMINOPHEN 5mg/325mg TAB PO PRN ×5 (01:00→20:32)
[2018-08-29] MEDS: IBUPROFEN 600 MG TAB PO PRN ×5 (03:33→22:12)
--- NOTE | 2018-08-29 07:31 | Obstetrical Progress Note ---
Date of Service August 29, 2018 Physical Exam 2 Vital Signs (Past 24 Hours): Last Vital Signs Temp 36.8 C 08/28/18 23:45 Pulse 93 H 08/28/18 23:45 Resp 18 08/28/18 23:45 BP 96/63 L 08/28/18 23:45 Pulse Ox 98 08/28/18 12:20 Physical Exam: abdomen soft and non tender vaginal bleeding scant to moderate incision is clean and dry numbness and some decreased motion of right foot hgb 9.9
--- NOTE | 2018-08-29 08:17 | Neurology Consultation ---
Date of Consultation August 29, 2018 Assessment & Plan (1) Right leg weakness: Patient has the acute onset, post spinal anesthesia procedure for C- section, of lumbar spine pain radiating to the right buttocks and into the right lower extremity with right lower extremity weakness, numbness, and dysesthesias. There is no specific neurologic pattern to this and her distribution of weakness , numbness, and pain involves multiple nerve roots. There are no other neurologic deficits and there are no meningeal signs or encephalopathy. So far, the patient has not made any significant improvements 3 days after the procedure. Fortunately, her weakness and dysesthesias are [id number] and she still has functioning of her muscles and can walk. (2) Headache: Patient has a history of significant migraine headaches. These were improved on topiramate but she is off this medication since . She had a significant headache last week but has no headache of significance currently. Recommendations; 1. Increase activity as able in lieu of her including some range of motion and light strengthening exercises for the right lower extremity and gait. She would likely benefit from physical therapy. 2. Anti-inflammatory medication, such as ibuprofen or naproxen sodium would be helpful. Steroids might be useful for healing this, but will be avoided because of her wound healing. 3. I have discussed with the patient how time is going to be the best factor in her making improvements. 4. If she is not making any significant improvement by 2-3 weeks I would then like to do EMG and nerve conduction studies of her right lower extremity. This will not be necessary if she is making rapid improvements over this time period. 5. Check with Pediatrics to see if she can restart topiramate for migraine prevention since she is going to be breast feeding. Otherwise, I have no further neurologic recommendations at this time. Please contact me if I can be of further assistance. I would be happy to see her in 2 weeks or so for follow-up if she is not making improvements. Overall, I spent a total of 90 minutes with this case including review of records, direct evaluation the patient at bedside, and discussion of the case with the patient at bedside with her spouse, clinical staff, and Dr. Nelson including differential diagnosis and treatment options. History of Present Illness Reason for Consultation: Patient is a 28-year-old, who I was asked to see the request of Dr. Mckay, for neurologic consultation regarding right lower extremity weakness, numbness, and pains following . Requesting Physician: Dr. Mckay Attending Physician: Jh Nelson MD History of Present Illness Patient has a history of migraine headaches since her late teen years. She sees a neurologist in [facility] who had been giving her topiramate ( unknown dose) which helped her frequency. She was getting headaches about 3 times a month prior to topiramate. Headaches typically consisted of the onset of nausea, photophobia, and some left-sided facial droop. She would have intense bioccipital pain radiating to the bifrontal head region of a fire like, burning nature. It would settle behind her eyes. Her headaches would last about 1-2 days. When she became this time topiramate was discontinued. She was given occipital nerve blocks which actually seem to help her headaches. During her she had some occasional headaches but not the intense migrainous once. She had a lot of nausea and vomiting during this . About 1 week ago she did have a significant headache. She was going into labor on the and had a performed around 2300 hours that day. Apparently, she had a difficult time with anesthesia for the . Apparently there were multiple attempts at spinal anesthesia (as much as 15) and she was getting significant low back pain particularly on the right which radiated to her right buttocks. Another physician came and got the spinal anesthesia on the 1st attempt. The procedure was successful. Following recovery she noted pain of a stabbing nature from the right low back down to the right buttocks. She had pins and needles and dysesthesias on her thigh both medial lateral and anteriorly on the right, and weakness in the right leg with difficulty walking. These deficits and problems have persisted since her procedure and have not improved (or worsened). She denies incontinence of urine, pain, weakness, or numbness in the left lower extremity, or symptoms in her neck or arms. Allergies Allergy/AdvReac Type Severity Reaction Status Date / Time No Known Allergies Allergy Verified 08/26/18 20:34 Home Medications Home Medications Medication Instructions Recorded Confirmed Type PNV cmb#[id number]-ferrous fumarate-FA 1 dose PO DAILY 08/15/18 08/26/18 History [] metoclopramide HCl [Reglan] 1 dose PO UD PRN 08/15/18 08/26/18 History ondansetron HCl [Zofran] 4 mg PO UD PRN 08/15/18 08/26/18 History potassium 1 dose PO BID 08/15/18 08/26/18 History promethazine [Phenergan] 1 dose UD PRN 08/15/18 08/23/18 History Patient History Medical History Hyperemesis gravidarum Endometriosis History of kidney stones Hyperemesis S/P IV FLUIDS SCHEDULED AT [facility] 08/15/18; IMPROVED Migraine Surgical History History of section History of endoscopy History of laparoscopic cholecystectomy 11/19/15= D&C, LAPAROSCOPY, BLAS= GRADE VIEW 2, MAC 3, ETT 7.5 AT [facility] History of laparoscopy 2/2 ENDOMETRIOSIS History of ovarian cystectomy History of tonsillectomy and adenoidectomy Family History Mother Family history of breast cancer Social History marital status: Current Living Situation: Spouse Current Living Situation Comment: AND 2 CHILDREN current occupational status: employed 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 Other Information That Helps Us Care for You: No Feels Safe at Home: Yes Safety Concerns: Feels Safe At This Time Smoking Status: Never smoker Do You Dip or Chew Tobacco: No Hx Alcohol Use: No Hx Substance Use: No Beliefs That Will Affect Care: None Preferred Language: Greenlandic Communication Ability: Effective Clerical Assigner Required: No Review of Systems Constitutional: no fever and no fatigue Eyes: no diplopia, no eye pain and no worsening vision Ear, Nose, Mouth, Throat: no ear pain, no tinnitus, no hearing loss and no dysphagia Respiratory: no cough and no dyspnea Cardiovascular: no chest pain, no dyspnea and no palpitations Gastrointestinal: + abdominal pain; no nausea and no vomiting Genitourinary (Female): no dysuria, no urinary frequency and no urinary incontinence Musculoskeletal: + back pain, + radicular pain and + muscle weakness; no neck pain, no myalgia and no muscle atrophy Integumentary: no rash and no lesions Neurologic: + gait abnormality, + localized weakness, + tingling and + numbness ; no falls, no generalized weakness, no tremor(s), no abnormal movements, no dizziness, no headache(s), no abnormal speech, no behavioral changes, no confusion and no memory loss Psychiatric: no depression, no abnormal sleep pattern, no anxiety, no difficulty concentrating, no confusion and no hallucinations Endocrine: no fatigue and no flushing Hematologic / Lymphatic: no easy bleeding and no easy bruising Allergy / Immunological: no urticaria Physical Exam 2 Vital Signs (Past 24 Hours): Last Vital Signs Temp 36.8 C 08/28/18 23:45 Pulse 93 H 08/28/18 23:45 Resp 18 08/28/18 23:45 BP 96/63 L 08/28/18 23:45 Pulse Ox 98 08/28/18 12:20 Physical Exam: The patient is right-handed. The patient is awake, alert, and attentive. Speech is normal without any aphasia or dysarthria. Mentation and thought processes are intact, with full orientation and normal fund of knowledge. Attention and concentration are normal. Mood and affect are normal and appropriate. General appearance and grooming are normal. Short and long-term memory are intact. The discs are sharp with positive venous pulsations bilaterally. There are no exudates, hemorrhages, or blood vessel changes seen. Pupils are 4 mm bilaterally and reactive to light. Extraocular eye muscles are intact without nystagmus. Visual acuity and visual mcgarry seem normal grossly to confrontation. There are no deficits to sensation in the face in all 3 distributions of the fifth cranial nerve bilaterally. Corneal reflexes are positive bilaterally. Facial strength and symmetry was normal bilaterally. Hearing seems intact grossly to voice and finger rub bilaterally. Palate moves well without asymmetry. There is normal sternocleidomastoid and trapezius (shoulder shrug) strength bilaterally. Tongue is midline with good strength bilaterally. Neck has a full range of motion without discomfort. There are no cervical bruits bilaterally. There are no cranial or ocular bruits. Heart is without murmur. There is a regular rhythm and rate. Cervical and thoracic are nontender to palpation. The lumbar spine is tender to palpation diffusely midline and both sides, right greater than left. There is some soft tissue swelling particularly on the right but no erythema and the puncture wounds are healing. Gait is narrow based with reasonable arm swing but she limps favoring the right leg. She does not have a classic footdrop. With outstretched arms there is no drift. There are no resting, postural, or action tremors. There is no ataxia with finger to nose testing. There is good facility in the hands. No other abnormal involuntary movements are noted. Motor strength is 5/5 diffusely in the arms bilaterally including deltoids, biceps, triceps, brachioradialis, wrist flexors and extensors, numberer and wirer, and intrinsic hand muscles. Motor strength is 5/5 diffusely in the left lower extremity the both proximally and distally. Motor strength is 4/5 in the hip flexor and quadriceps muscles. Hip adductor and abductors are 5/5 on the left and 4+/5 on the right. Hamstring is 4+/5 on the right. Tibialis anterior, the tibialis posterior, gastrocnemius, and peroneus muscles are 4/5 on the right. Toe extensors are 4+/5 including the extensor hallucis and extensor digitorum brevis. There is no focal atrophy. The limbs have good tone without rigidity or spasticity. There is no atrophy noted in the muscles. Muscle bulk is normal, there is no tenderness to palpation , no myotonia to percussion, and no fasciculations seen. Sensory examination reveals some altered sensation to touch diffusely in the right lower extremity including the medial, the anterior, and lateral thigh, the lateral lower leg and lateral foot. The medial lower leg was relatively spared. Reflexes are 2/4 in the biceps, triceps, brachioradialis, quadriceps, and Achilles tendons bilaterally. Toes are downgoing with plantar stimulation bilaterally. Peripheral pulses are present and of normal quality distally in all 4 limbs. There is no peripheral edema noted in the limbs. _ (1) Headache Headache chronicity pattern: unspecified pattern Headache type: unspecified Intractability: intractable Qualified Code(s): R51 - Headache
[2018-08-29] MEDS: SIMETHICONE 80 MG CHEW PO SCH ×4 (08:52→20:31)
[2018-08-29] MEDS: DOCUSATE SODIUM 100 MG CAP PO SCH ×2 (08:52→20:31)
[2018-08-29] MEDS: GABAPENTIN 300 MG CAP PO SCH ×2 (08:53→20:31)
[2018-08-29] MEDS: FERROUS SULFATE 325 MG TAB PO SCH (08:53)
[2018-08-29] MEDS: PRENATAL VITAMIN 1 TAB PO SCH (08:53)
--- NOTE | 2018-08-29 10:25 | Anesthesiology Progress Note ---
Date of Service August 29, 2018 POD #3, the patient is scheduled for discharge this morning. She was seen by the neurologist this morning. His note was read and appreciated. The patient told me that she is starting to feel better and that her pain is down from an 8 to a 6. She said she is ambulating without problem. She still l has the paresthesia of her right hip but is starting to get feeling there. Physical Exam Vital Signs Last Vital Signs Temp 36.8 C 08/28/18 23:45 Pulse 93 H 08/28/18 23:45 Resp 18 08/28/18 23:45 BP 96/63 L 08/28/18 23:45 Pulse Ox 98 08/28/18 12:20 Results & Data Medications Administered Docusate Sodium (Colace) 100 mg PO BID [facility] Stop: 09/26/18 08:59 Last Admin: 08/29/18 08:52 Dose: 100 mg Admin: 08/28/18 21:11 Dose: 100 mg Admin: 08/28/18 08:28 Dose: 100 mg Admin: 08/27/18 21:35 Dose: 100 mg Admin: 08/27/18 13:20 Dose: Not Given Ferrous Sulfate (Feosol) 325 mg PO QAM [facility] Stop: 09/26/18 08:59 Last Admin: 08/29/18 08:53 Dose: 325 mg Admin: 08/28/18 08:27 Dose: 325 mg Admin: 08/27/18 13:20 Dose: Not Given Gabapentin (Neurontin) 300 mg PO BID [facility] Stop: 09/27/18 08:59 Last Admin: 08/29/18 08:53 Dose: 300 mg Admin: 08/28/18 21:11 Dose: 300 mg Admin: 08/28/18 08:27 Dose: 300 mg Lactated Ringer's (Lr) 1,000 mls @ 125 mls/hr IV .Q8H [facility] Stop: 09/25/18 21:18 Last Infusion: 08/26/18 21:41 Dose: 0 mls/hr Admin: 08/26/18 21:31 Dose: 125 mls/hr Promethazine HCl 25 mg/ Sodium (Chloride) 51 mls @ 204 mls/hr IV Q4H PRN PRN Reason: Nausea And Vomiting Stop: 09/25/18 23:48 Last Admin: 08/27/18 02:45 Dose: 204 mls/hr Ibuprofen (Motrin) 600 mg PO Q4H PRN PRN Reason: Pain Stop: 09/25/18 23:48 Last Admin: 08/29/18 08:53 Dose: 600 mg Admin: 08/29/18 03:33 Dose: 600 mg Admin: 08/28/18 23:55 Dose: 600 mg Admin: 08/28/18 14:28 Dose: 600 mg Admin: 08/28/18 10:20 Dose: 600 mg Admin: 08/28/18 04:19 Dose: 600 mg Admin: 08/28/18 00:26 Dose: 600 mg Oxycodone/Acetaminophen (Percocet 5mg/325mg) 1 - 2 tab PO Q4H PRN PRN Reason: Pain Stop: 09/10/18 20:19 Last Admin: 08/29/18 09:58 Dose: 1 tab Admin: 08/29/18 04:55 Dose: 1 tab Admin: 08/29/18 01:00 Dose: 1 tab Admin: 08/28/18 20:14 Dose: 2 tab Admin: 08/28/18 15:50 Dose: 1 tab Admin: 08/28/18 12:15 Dose: 1 tab Admin: 08/28/18 08:28 Dose: 1 tab Admin: 08/28/18 04:19 Dose: 1 tab Admin: 08/28/18 00:27 Dose: 1 tab Prenat Multivit/[employer]/Iron/Folic Ac ( Vitamin) 1 tab PO QAM [facility] Stop: 09/26/18 08:59 Last Admin: 08/29/18 08:53 Dose: 1 tab Admin: 08/28/18 08:27 Dose: 1 tab Admin: 08/27/18 13:20 Dose: Not Given Simethicone (Mylicon) 80 mg PO QID [facility] Stop: 09/26/18 08:59 Last Admin: 08/29/18 08:52 Dose: 80 mg Admin: 08/28/18 21:11 Dose: 80 mg Admin: 08/28/18 20:17 Dose: Not Given Admin: 08/28/18 12:19 Dose: 80 mg Admin: 08/28/18 08:27 Dose: 80 mg Admin: 08/27/18 21:35 Dose: 80 mg Admin: 08/27/18 17:59 Dose: 80 mg Admin: 08/27/18 17:33 Dose: Not Given Admin: 08/27/18 13:20 Dose: Not Given
--- NOTE | 2018-08-29 15:30 | Ultrasound Report ---
US venous doppler LE BI CLINICAL HISTORY: Leg swelling COMPARISON STUDY: No previous studies for comparison. FINDINGS: Real-time and color flow Doppler imaging were performed. Flow was seen within the femoral, popliteal and calf veins with no intraluminal thrombus demonstrated. The saphenous vein is patent. Th e technologist reports slow flow within the right popliteal vein. IMPRESSION: No evidence of lower extremity DVT. Electronically signed by: Juan Wetzel M.D. 08/29/2018 3:29 PM
[2018-08-30] MEDS: OXYCODONE/ACETAMINOPHEN 5mg/325mg TAB PO PRN ×2 (00:04→10:17)
[2018-08-30] MEDS: GABAPENTIN 300 MG CAP PO SCH (08:35)
[2018-08-30] MEDS: FERROUS SULFATE 325 MG TAB PO SCH (08:35)
[2018-08-30] MEDS: PRENATAL VITAMIN 1 TAB PO SCH (08:35)
[2018-08-30] MEDS: DOCUSATE SODIUM 100 MG CAP PO SCH (08:35)
[2018-08-30] MEDS: IBUPROFEN 600 MG TAB PO PRN (08:36)
[2018-08-30] MEDS: SIMETHICONE 80 MG CHEW PO SCH (08:36)
--- NOTE | 2018-08-30 08:49 | Obstetrical Progress Note ---
Date of Service August 30, 2018 Physical Exam 2 Vital Signs (Past 24 Hours): Last Vital Signs Temp 36.4 C L 08/29/18 23:55 Pulse 74 08/29/18 23:55 Resp 18 08/29/18 23:55 BP 102/66 08/29/18 23:55 Pulse Ox 99 08/29/18 10:29 Physical Exam: abdomen soft and non tender incision is clean and dry vaginal bleeding scant to moderate ambulating well pain controlled
--- NOTE | 2018-08-30 09:34 | Neurology Progress Note ---
Date of Service August 30, 2018 Assessment & Plan (1) Right leg weakness: Patient had the acute onset, post spinal anesthesia procedure for C- section, of lumbar spine pain radiating to the right buttocks and into the right lower extremity with right lower extremity weakness, numbness, and dysesthesias. There is no specific neurologic pattern to this and her distribution of weakness , numbness, and pain involves multiple nerve roots, mostly L3/L4. There are no other neurologic deficits and there are no meningeal signs or encephalopathy. So far, the patient has made some mild improvements, 4 days after this procedure. Fortunately, her weakness and dysesthesias are [id number] and she still has functioning of her muscles and can walk. (2) Headache: Patient has a history of significant migraine headaches. These were improved on topiramate but she is off this medication since . She had a significant headache last week but has no headache of significance currently. Recommendations; 1. Increase activity as able in lieu of her including some range of motion and light strengthening exercises for the right lower extremity and gait. She would likely benefit from physical therapy. 2. Anti-inflammatory medication, such as ibuprofen or naproxen sodium would be helpful. Steroids might be useful for healing this, but will be avoided because of her wound healing. 3. I have discussed with the patient how time is going to be the best factor in her making improvements. 4. I would like to see her back in 2-3 weeks as an outpatient. If she is not making significant improvements, then I will likely obtain an EMG and nerve conduction studies of her right lower extremity. This will not be necessary if she is making rapid improvements over this time period. 5. Check with Pediatrics to see if she can restart topiramate for migraine prevention since she is going to be breast feeding. Overall, I spent a total of 25 minutes with this case including review of records, direct evaluation the patient at bedside, and discussion of the case with the patient at bedside with her spouse and clinical staff including differential diagnosis and treatment options. Subjective Has right low back pain which radiates into the right lower extremity when she stands and walks. When she sits her back is sore but she does not have the radicular pain. She still has some weakness and dysesthesias of the right lower extremity as before. Nursing reports no new issues or problems. Patient had lower extremity venous Doppler for some right anterior mid lower leg swelling which was unremarkable for any DVT. Physical Exam 2 Vital Signs (Past 24 Hours): Last Vital Signs Temp 36.4 C L 08/29/18 23:55 Pulse 74 08/29/18 23:55 Resp 18 08/29/18 23:55 BP 102/66 08/29/18 23:55 Pulse Ox 99 08/29/18 10:29 Physical Exam: She is awake and alert. Speech is without aphasia or dysarthria. Mood and affect are normal and appropriate. Thought processes are intact. There is no facial droop. Coordination is normal in the upper extremities and there are no abnormal involuntary movements. Strength is symmetrical in the arms. Gait is narrow based and she limps favoring the right leg. Strength is 4-/5 in the hip flexor and quadriceps on the right compared to the left which was 5/5. Strength was 4/5 in the hamstrings and closer to have 4+/5 distally in the tibialis anterior, gastrocnemius, toe extensors, peronei, and posterior tibialis on the right. The left lower extremity was diffusely 5/5. There was some variable giveaway weakness distally. Reflexes were 2/for the quadriceps and Achilles tendons bilaterally. The patient has some dysesthesias and decreased sensation to touch in the medial , anterior, and lateral thigh, lateral lower leg and lateral foot on the right. _ (1) Headache Headache chronicity pattern: unspecified pattern Headache type: unspecified Intractability: intractable Qualified Code(s): R51 - Headache
--- NOTE | 2018-08-30 12:12 | Discharge Summary ---
This is a dictation of a hospitalization for repeat section. Mrs. Lewis was admitted in early labor on 08/26/2018. She was diagnosed as being in early labor. She had been scheduled for repeat section the following day. She was taken to the OR where she underwent repeat low segment section. Estimated blood loss at that time was about 700 mL. Her preoperative hemoglobin was 11.6. Postoperatively, hemoglobin stabilized at 9.9. She did have several attempts at spinal anesthesia that were unsuccessful, though we were finally able to get the anesthetic in. Postoperatively, she remained afebrile. Her bowel sounds returned within about 24 hours. However, she did complain of some right-sided foot weakness and pain. She was evaluated by Dr. Cueto, the neurologist, who basically thought that the condition would resolve on its own with time. I gave the patient instructions to ambulate postop, but to be careful that she did not fall or twist her right ankle. She was also given pain pills, Percocet and Motrin, and at the time of discharge she was ambulating well. Some of her symptoms of pain and weakness had already started to resolve and the pain was well controlled with a combination of Percocet and Motrin. She was instructed to return to the office in a week for removal of the ivelisse.
== END 2018-08-30 13:20 | disposition home or self-care (01) | DRG 788 ==
LOC: 4S1 20:09 → 4S2 08-27 03:30 → EDSTATUS 08-27 08:50

== ENCOUNTER 2023-08-21 14:27 | Observation (INO) ==
[2023-08-21 14:57] LABS: Appearance Urine Clear (Clear); Bilirubin Urine Negative (Negative); Blood Urine Negative (Negative); Color Urine Yellow; Glucose Urine UA Negative (Negative); Ketones Urine 4+ (Negative); Leukocyte Esterase Urine Negative (Negative); Nitrite Urine Negative (Negative); Protein Urine Negative (Negative); Specific Gravity Urine 1.019 (1.000-1.030); Urobilinogen Urine Negative (Negative)
[2023-08-21] MEDS ORDERED: D5W AND NSS 1,000 ML IV SCH ×2 (15:08→21:30)
[2023-08-21 15:18] LABS: Basophils # (auto) 0.03 K/uL (0.00-0.20); Basophils % (auto) 0.3 %; Eosinophils # (auto) 0.05 K/uL (0.00-0.50); Eosinophils % (auto) 0.4 %; Hematocrit (blood only) 35.5 % (37.0-47.0); Hemoglobin 12.1 g/dl (12.0-16.0); Immature Granulocytes # (auto) 0.08 K/uL (0.01-0.20); Immature Granulocytes % (auto) 0.7 %; Lymphocytes # (auto) 1.55 K/uL (1.20-3.40); Lymphocytes % (auto) 13.9 %; Mean Corpuscular Hgb Conc 34.1 g/dL (32.0-36.0); Mean Corpuscular Volume 88.1 fL (80.0-100.0); Mean Platelet Volume 11.2 fL (9.4-12.4); Monocytes # (auto) 0.73 K/uL (0.11-0.59); Monocytes % (auto) 6.5 %; Neutrophils # (auto) 8.71 K/uL (1.40-6.50); Neutrophils % (auto) 78.2 %; Platelet Count 157 K/uL (130-400); RDW Coefficient of Variation 13.8 % (11.5-14.5); Red Blood Count 4.03 M/uL (4.20-5.40); White Blood Count 11.15 K/ul (4.8-10.8)
[2023-08-21] MEDS: ONDANSETRON INJ 2 MG/ML 2 ML VIAL IV PRN ×2 (15:18→22:17)
[2023-08-21 15:34] LABS: Potassium 3.4 mmol/L (3.5-5.1)
[2023-08-21] MEDS ORDERED: D5W AND NSS IV SCH (16:30)
[2023-08-21] MEDS ORDERED: PYRIDOXINE HCL IV SCH (16:30)
[2023-08-21] MEDS ORDERED: ACETAMINOPHEN 500 MG TAB PO PRN (16:46)
[2023-08-21] MEDS: diphenhydrAMINE Capsule 25 MG CAP PO PRN (18:36)
[2023-08-21] MEDS: PROMETHAZINE HCL 25 MG in SODIUM CHLORIDE 0.9% 50 ML IV PRN (18:37)
[2023-08-21] MEDS ORDERED: MULTI-VITAMIN INFUSION 10 ML, THIAMINE HCL 100 MG, FOLIC ACID 1 MG in SODIUM CHLORIDE 0... IV ONE (19:30)
[2023-08-22] MEDS: diphenhydrAMINE Capsule 25 MG CAP PO PRN ×2 (01:08→04:40)
[2023-08-22] MEDS: CALCIUM CARBONATE 500 MG CHEWABLE TAB PO PRN (01:10)
[2023-08-22] MEDS: ONDANSETRON INJ 2 MG/ML 2 ML VIAL IV PRN ×2 (01:51→08:18)
[2023-08-22] MEDS: D5W AND NSS 1,000 ML IV SCH ×3 (02:38→08:48)
[2023-08-22] MEDS: PROMETHAZINE HCL 25 MG in SODIUM CHLORIDE 0.9% 50 ML IV PRN (04:35)
--- NOTE | 2023-08-22 09:22 | Obstetrical Progress Note ---
Date of Service August 22, 2023 Assessment & Plan Admission and Anticipated Discharge Date Admission Date: August 21, 2023 Subjective vomiting has stopped still unable to take oral nutrition started voiding in large amounts this am will add po potassium Results & Data Vital Signs (Past 12 Hours) Vital Signs Temp Pulse Resp BP BP Pulse Ox O2 Del Method 08/22/23 08:16 37.1 C 84 16 113/78 98 Room Air 08/22/23 04:40 36.8 C 88 18 90/53 L 97 Room Air 08/22/23 01:00 Room Air 08/22/23 01:00 36.5 C 70 18 98/67 L 97 Room Air
[2023-08-22] MEDS ORDERED: Nursing to Pharmacy Communication SCH ×2 (09:30→09:45)
[2023-08-22] MEDS ORDERED: D5W AND NSS IV SCH (10:00)
[2023-08-22] MEDS ORDERED: PYRIDOXINE HCL IV SCH (10:00)
[2023-08-22] MEDS ORDERED: LACTATED RINGER'S 1,000 ML IV SCH ×2 (14:30→21:00)
[2023-08-22] MEDS ORDERED: MULTI-VITAMIN INFUSION 10 ML, THIAMINE HCL 100 MG, FOLIC ACID 1 MG in SODIUM CHLORIDE 0... IV ONE (16:40)
[2023-08-22] MEDS: POTASSIUM CHLORIDE CRTAB 20 MEQ TABCR PO SCH (20:11)
--- NOTE | 2023-08-23 09:00 | Obstetrical Progress Note ---
Date of Service August 23, 2023 Assessment & Plan Admission and Anticipated Discharge Date Admission Date: August 21, 2023 Subjective patient is not vomiting nausea decreased voiding in large amounts tolerating diet well Results & Data Vital Signs (Past 12 Hours) Vital Signs Temp Pulse Resp BP BP Pulse Ox O2 Del Method 08/23/23 07:45 37.1 C 91 H 18 107/66 97 Room Air 08/23/23 03:45 37.1 C 96 H 16 104/70 97 Room Air 08/23/23 00:15 37.2 C 96 H 16 90/58 L 96 Room Air
[2023-08-23] MEDS: POTASSIUM CHLORIDE CRTAB 20 MEQ TABCR PO SCH (09:16)
[2023-08-23] MEDS: CALCIUM CARBONATE 500 MG CHEWABLE TAB PO PRN (09:16)
--- NOTE | 2023-08-31 11:53 | Discharge Summary ---
Date of Service August 23, 2023 Admission HPI Per Admitting Provider Patient's 33-year-old female followed in our office for care and delivery. has been well dated with a first trimester ultrasound. She is a 4 para 3. She has a history of endometriosis. History of midtrimester bleeding. History of hyperemesis complicating this . She has been treated with Zofran as needed for control of the nausea and vomiting at home. She is also taking supplemental potassium. However since this a.m. of admission she has had vomiting every 15 minutes. Unable to take even fluids. And she stated that she has some decrease in movement. She also has laboratory work for bile salts which is pending on time of admission. Unable to control symptoms in twenty-four hours secondary to severe dehydration. Hospital Course (1) Dehydration during : Plan Continued nausea and vomiting for over twenty-four hours requiring fluids and antiemetics. Continued outpatient monitoring until labor.
== END 2023-08-23 10:15 | disposition home or self-care (01) ==
LOC: 4E1 14:27 → OPB 14:27 → 4S1 14:28 → 4E1 17:59

== ENCOUNTER 2023-08-25 11:47 | Inpatient (IN) ==
[2023-08-25] MEDS: D5W AND LACTATED RINGERS 1,000 ML IV SCH ×2 (13:00→19:19)
[2023-08-25] MEDS ORDERED: LIDOCAINE 1% LOCAL 20 ML VIAL INFIL PRN (14:24)
[2023-08-25] MEDS ORDERED: OXYTOCIN 30 UNITS/NSS 30 UNITS/500 ML BAG IV PRN (14:24)
[2023-08-25] MEDS: LACTATED RINGER'S 1,000 ML IV SCH (14:40)
--- NOTE | 2023-08-25 14:48 | History & Physical Report ---
Date of Service August 25, 2023 Assessment & Plan (1) Labor and delivery affected by fetopelvic disproportion: (2) History of section: Plan Repeat section. Admission and Anticipated Discharge Date Admission Date: August 25, 2023 History of Present Illness Chief Complaint: Intrauterine 38 weeks 1 day gestation. Active labor. 2 previous sections. Primary Care Provider: Kirk Rivero Patient is a 33-year-old 5 para 3 due to a's 09/07/2023. This was well established with a first trimester ultrasound. Present has been complicated by persistent nausea and vomiting. Recent hospitalization for dehydration. Obstetrical history is as follows. Delivery in 2011 8 pound female. Shoulder dystocia at 41 weeks gestation. Second delivery 2014 primary . Ruptured membranes 35 weeks gestation failure to progress weight 5 pounds. Second delivery 2018 male 8 pounds 39 weeks gestation repeat section. Patient was recently hospitalized for 2 days for correction of dehydration and electrolyte imbalance due to persistent nausea and vomiting the day of admission she states she has been vamsi since about 2 AM in the morning. She has been unable to sleep. Pelvic exam in the office revealed the cervix to be 1 cm posterior. She was admitted to maternity for evaluation. She was having regular contractions every 2 to 3 minutes. And she was breathing through the contractions. Diagnosed as being in active labor at 38 weeks 1 day gestation scheduled for repeat . Allergies Allergy/AdvReac Type Severity Reaction Status Date / Time Penicillins Allergy Unknown Hives Verified 08/25/23 13:33 Home Medications Medication Instructions Recorded Confirmed Type ondansetron 8 mg disintegrating 8 mg PO TID PRN Nausea And Vomiting 03/10/23 08/25/23 History tablet vits no.124-ferrous fum 1 tab PO DAILY 08/25/23 08/25/23 History 27 mg iron-folic acid 800 mcg tablet ( Vitamin) Past Med/Surg History Medical History (Updated 08/25/23 @ 14:45 by Jh Nelson MD) GERD (gastroesophageal reflux disease) during Blood clot associated with vein wall inflammation left arm discovered after fall 1 yr ago-was on baby aspirin for several weeks and resolved per pt and support person History of influenza + test Jul 15 2023. [facility]. Fever, vomiting, headache, cough, shortness of breath. All s/s resolved. Denies current s/s. Hyperemesis Chronic low blood pressure "bp runs low" Subchorionic hemorrhage in first trimester 6weeks-16 weeks. As of known information, currently resolved. Cervix abnormality pre cancerous cells, chronic. Monitoring. Migraines History of kidney stones last 4 yrs ago Endometriosis Surgical History (Updated 08/25/23 @ 14:45 by Jh Nelson MD) History of anesthesia reaction slow to wake and hypotensive History of anesthesia complications "very bad experience" at [facility] with 2019 r/t spinal. Says physician stuck her 17x before another physician able to come and place spinal. States she experienced RLE paralysis for several months and unable to ambulate. Says still with limited ROM to RLE. Remains. Per repeat anesthesia record from 08/26/18 [facility], "multiple attempts at placing spinal L3-4, L4-5" were unsuccessful by Dr. Tracy, Dr. Ortega called to help > SAB at L3-[address] Ortega. History of shoulder surgery left shoulder arthroscopy 07/14/22 LMA#4 + PNB. History of loop electrical excision procedure (LEEP) History of section x2 History of endoscopy History of tonsillectomy and adenoidectomy History of laparoscopy 2/2 endometriosis History of ovarian cystectomy History of laparoscopic cholecystectomy 11/19/15: D&C, laparoscopy, BLAS: Grade 2 view, MAC 3, ETT 7.5 at [facility] Family History Mother Family history of breast cancer Social History Smoking Status: Never smoker Second Hand Exposure: No; Do You Dip or Chew Tobacco: No; Hx Alcohol Use: No (not during ) Hx Substance Use: No Preferred Language: Faroese Communication Ability: Effective 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 Required: No Beliefs That Will Affect Care: None marital status: Single Current Living Situation: Family Current Living Situation Comment: SO and 3 children current occupational status: employed 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 Neck was supple trachea midline thyroid was not enlarged. There was no cervical adenopathy. Lungs were clear to auscultation and percussion. Heart had a regular rhythm S1 and S2 were normal. Abdomen revealed a gravid abdomen consistent with 38 weeks gestational size. There was a well-healed Pfannenstiel incision.There was no calf tenderness. Pelvic exam revealed a vertex presentation cervix was posterior 1 cm dilated. Results & Data Results & Data Vital Signs (Past 12 Hours) Vital Signs Temp Pulse Resp BP 08/25/23 12:48 36.7 C 98 H 20 123/69 08/25/23 12:03 98 H 123/69
[2023-08-25] MEDS ORDERED: ePHEDrine sulfate 50 MG/ML AMP IV PRN (14:50)
[2023-08-25] MEDS ORDERED: HYDROmorphone INJ 0.5 MG/0.5 ML SYR IV PRN (14:50)
[2023-08-25] MEDS ORDERED: NALOXONE HCL 0.4 MG/1 ML VIAL/CARP IV PRN (14:50)
[2023-08-25] MEDS ORDERED: NALOXONE HCL 0.08 MG in SYRINGE 1.8 ML IV PRN (14:50)
[2023-08-25] MEDS ORDERED: MoRPHine SULFATE 2 MG/ML CARP IV PRN (14:50)
[2023-08-25] MEDS ORDERED: NALBUPHINE HCL 5 MG in SYRINGE 0 ML IV PRN (14:50)
[2023-08-25] MEDS ORDERED: ONDANSETRON INJ 2 MG/ML 2 ML VIAL IV PRN ×2 (14:50→16:44)
[2023-08-25] MEDS ORDERED: LACTATED RINGER'S 500 ML IV PRN (14:50)
[2023-08-25] MEDS ORDERED: MoRPHine SULFATE PF 1 MG/ML 10 ML AMP/VIAL INT SPINAL ONE (14:50)
[2023-08-25] MEDS ORDERED: NALOXONE HCL 1 MG in SODIUM CHLORIDE 0.9% 1,000 ML IV PRN (14:50)
[2023-08-25] MEDS ORDERED: cefOXitin 2,000 MG in DEXTROSE 5 % MINI-B 50 ML IV STA (14:50)
[2023-08-25] MEDS ORDERED: diphenhydrAMINE 50 MG/ML VIAL IV PRN (14:50)
--- NOTE | 2023-08-25 14:50 | Anesthesiology Consultation ---
Date of Service August 25, 2023 Assessment & Plan ASA ASA2 Proposed Anesthesia Anesthesia Type: Spinal Risk / Benefits Reviewed With: PT / POA / Parent / Guardian, Accepts Plan and Informed Consent Obtained History Height/Weight Height: 5 ft 1 in Weight: 82.1 kg Allergies Allergy/AdvReac Type Severity Reaction Status Date / Time Penicillins Allergy Unknown Hives Verified 08/25/23 13:33 Medications Home Medications Medication Instructions Recorded Confirmed Last Taken ondansetron 8 mg disintegrating 8 mg PO TID PRN Nausea And Vomiting 03/10/23 08/25/23 Unknown tablet vits no.124-ferrous fum 1 tab PO DAILY 08/25/23 08/25/23 Unknown 27 mg iron-folic acid 800 mcg tablet ( Vitamin) Active Medications Generic Name Dose Route Start Last Admin Trade Name Freq PRN Reason Stop Dose Admin Cefoxitin Sodium 2,000 mg/ 50 mls @ 100 mls/hr 08/25/23 14:50 08/25/23 15:08 Dextrose IV 08/25/23 15:19 100 mls/hr NOW STA Administration Protocol NPO Date Last Intake of Fluids: 08/25/23 Time Last Intake of Fluids: 12:00 Date Last Intake of Solids: 08/25/23 Time Last Intake of Solids: 00:00 Past Medical History Medical History GERD (gastroesophageal reflux disease) during Blood clot associated with vein wall inflammation left arm discovered after fall 1 yr ago-was on baby aspirin for several weeks and resolved per pt and support person History of influenza + test Jul 15 2023. [facility]. Fever, vomiting, headache, cough, shortness of breath. All s/s resolved. Denies current s/s. Hyperemesis Chronic low blood pressure "bp runs low" Subchorionic hemorrhage in first trimester 6weeks-16 weeks. As of known information, currently resolved. Cervix abnormality pre cancerous cells, chronic. Monitoring. Migraines History of kidney stones last 4 yrs ago Endometriosis Exercise / Class Metabolic Activity II 4-5 Yardwork/Stairs/Walk up hill Past Family History Family History Mother Family history of breast cancer Past Surgical History Surgical History History of anesthesia reaction slow to wake and hypotensive History of anesthesia complications "very bad experience" at [facility] with 2019 r/t spinal. Says physician stuck her 17x before another physician able to come and place spinal. States she experienced RLE paralysis for several months and unable to ambulate. Says still with limited ROM to RLE. Remains. Per repeat anesthesia record from 08/26/18 [facility], "multiple attempts at placing spinal L3-4, L4-5" were unsuccessful by Dr. Tracy, Dr. Ortega called to help > SAB at L3-[address] Ortega. History of shoulder surgery left shoulder arthroscopy 07/14/22 LMA#4 + [facility]. History of loop electrical excision procedure (LEEP) History of section x2 History of endoscopy History of tonsillectomy and adenoidectomy History of laparoscopy 2/2 endometriosis History of ovarian cystectomy History of laparoscopic cholecystectomy 11/19/15: D&C, laparoscopy, BLAS: Grade 2 view, MAC 3, ETT 7.5 at [facility] Past Anesthesia History No Hx of Anesthesia Complications and No Family Hx of Anesthesia Complications History of PONV No Hx of PONV and No Hx of Motion Sickness Social History Smoking Status: Never smoker Do You Dip or Chew Tobacco: No Hx Alcohol Use: No (not during ) alcohol intake frequency: holidays/special occasions only Hx Substance Use: No substance use type: does not use Review of Systems denies fever/cough/ colds/ chest pain/ SOB/ VI denies VI Physical Exam Vital Signs Last Vital Signs Temp 36.7 C 08/25/23 12:48 Pulse 98 H 08/25/23 12:48 Resp 20 08/25/23 12:48 BP 123/69 08/25/23 12:48 ENMT Mouth: no TMJ abnormality and no dentition abnormality Thyromental Distance: > or= 3.5 Finger Breadths Mallampati Class: II Neck neck extension not limited Respiratory normal respiratory effort; no respiratory distress Auscultation: lungs clear to auscultation bilaterally Cardiovascular Rate/Rhythm: regular rate and regular rhythm Neurologic moves all extremities Psychiatric Orientation: alert and oriented x 3 Testing Laboratory Results 08/25/23 14:39
[2023-08-25] MEDS ORDERED: CITRIC ACID/SODIUM CITRATE 15 ML UDC PO ONE (14:51)
[2023-08-25 14:53] LABS: Hematocrit (blood only) 38.7 % (37.0-47.0); Hemoglobin 12.9 g/dl (12.0-16.0); Mean Corpuscular Hemoglobin 29.6 pg (25.0-34.0); Mean Corpuscular Hgb Conc 33.3 g/dL (32.0-36.0); Mean Corpuscular Volume 88.8 fL (80.0-100.0); Mean Platelet Volume 11.7 fL (9.4-12.4); Platelet Count 177 K/uL (130-400); RDW Coefficient of Variation 14.3 % (11.5-14.5); RDW Standard Deviation 45.5 fL (36.4-46.3); Red Blood Count 4.36 M/uL (4.20-5.40); White Blood Count 14.71 K/ul (4.8-10.8)
[2023-08-25] MEDS ORDERED: MoRPHine SULFATE PF 1 MG/ML 10 ML AMP/VIAL ONE (14:55)
[2023-08-25] MEDS ORDERED: PHENYLEPHRINE HCL 10 MG/ML VIAL ONE (14:55)
[2023-08-25] MEDS ORDERED: fentaNYL citrate PF 100 MCG/2 ML VIAL ONE (14:55)
[2023-08-25] MEDS ORDERED: OXYTOCIN 10 UNITS/ML VIAL ONE ×2 (14:55→15:34)
[2023-08-25] MEDS ORDERED: SODIUM CHLORIDE 0.9% 1,000 ML IV SCH (15:00)
[2023-08-25] MEDS ORDERED: NO NARCOTICS OR SEDATIVES SCH (15:00)
[2023-08-25] MEDS ORDERED: DC INTRASPINAL MORPHINE SCH (15:00)
[2023-08-25] MEDS ORDERED: ONDANSETRON INJ 2 MG/ML 2 ML VIAL ONE (16:03)
[2023-08-25] MEDS ORDERED: OXYTOCIN 10 UNITS/ML 10ML VIAL IM ONE (16:11)
[2023-08-25] MEDS ORDERED: SENNA 8.6 MG TAB PO PRN (16:44)
[2023-08-25] MEDS ORDERED: MAGNESIUM HYDROXIDE SUSP 30 ML UDC PO PRN (16:44)
[2023-08-25] MEDS ORDERED: HYDROCORTISONE ACETATE 25 MG SUPP PR PRN (16:44)
[2023-08-25] MEDS ORDERED: DIPHTHER/TETAN/PERTUS Vaccine (Tdap, Adol/Adult) 0.5mL IM ONE (16:44)
[2023-08-25] MEDS ORDERED: BENZOCAINE 20% SPRY 85 APPLN/85 GM CAN EXT PRN (16:44)
--- NOTE | 2023-08-25 16:56 | Operative Report ---
Post Operative Report Pre & Post Diagnosis Operation Date: 08/25/23 15:00 Pre-Op Diagnosis: intrauterine , previous section, desires repeat Post-Op Diagnosis: intrauterine , previous section, desires repeat I identified the patient and participated in the time-out.: Yes Procedure Repeat low segment section. Operation Date: 08/25/23 15:00 <No data on this case meets the specified criteria> Surgeon Jh Nelson MD Depot Manager Dr. Delgadillo Estimated Blood Loss 500 Findings Consistent with Post-Op Diagnosis Vertex presentation. Nuchal cord x 2. Specimens Placenta. Drains None Anesthesia Type Spinal Complications None Indications Active labor. 2 previous sections. Cephalopelvic disproportion. Description of Procedure Patient was brought to the OR correctly identified by armband and conversation. Spinal anesthesia was administered. Delarosa catheter was inserted aseptically into the bladder connected to gravity drainage. Compression stockings were applied. Patient was positioned on the operating room table. Lower abdomen was painted with an alcohol-based sterilizing solution. Patient was draped in usual sterile fashion. The adequacy of the anesthesia was tested. A Pfannenstiel incision was made through her previous scar. Incision was carried down to the fascia by sharp dissection. Hemostasis was secured by electrocauterization. The fascia was incised in the midline. Incision was extended out laterally with the scissors. Fascia was dissected from the recti muscles. Fascia was continued up towards the umbilicus. And then down to the pelvic brim. Recti muscles were in the midline. Peritoneum was carefully raised and entered. Lower uterine segment was exposed. Vertex presentation was palpable. Incision was made above the the vesicouterine fold. Uterus was scored with a knife and then entered with the scissors. Clear amniotic fluid was seen at this time. A pectus retractor was applied to the head. With fundal pressure the head was delivered. There was a nuchal cord x 2 which was reduced over the head. Infant was delivered without difficulty. Cord was allowed to pulse for 1 minute. Then clamped and cut. was attended to by the java technical architect who is scrubbed and present at the time of the delivery. Cord blood was taken. Placenta was removed manually. Uterus tubes and ovaries were brought out through the incision. Uterine cavity was cleansed with a clean sponge. The lower defect and uterine cavity was then closed anatomically. A chromic suture was used to approximate the muscular layer with a continuous chromic stitch. Then the fascial layer was approximated over the muscular approximation using a horizontal stitch of heavy Vicryl. This was bolstered in 1 or 2 spots with a [id number] suture following this palpation of the uterine segment revealed everything to be intact there were no weak areas. Peritoneal edges were approximated with continuous 3-0 chromic suture. Pelvis was cleansed of all blood clots and debris. Uterus tubes and ovaries were reinserted into the abdominal cavity. A careful anatomical approximation of the anterior abdominal wall was now performed. Peritoneum was closed with a continuous Chromic Gut suture. Recti muscles were approximated with a continuous Chromic Gut suture. Fascia was closed with continuous suture of heavy Vicryl the suture started at the ankle on both the right and left sides and then run to the middle. Incision was then cleaned. Subcu was approximated with a running plain. Skin edges were approximated with staple clips. Patient Toller procedure well left the OR in good condition. I attest to the content of the Intraoperative Record and any orders documented therein. Any exceptions are noted below.
[2023-08-25] MEDS: LACTATED RINGER'S 1,000 ML IV PRN ×2 (17:10→18:30)
[2023-08-25] MEDS: SIMETHICONE 80 MG CHEW PO SCH ×2 (17:29→19:38)
--- NOTE | 2023-08-25 17:30 | Anesthesiology Progress Note ---
Date of Service August 25, 2023 Anesthesia Post Procedure Vital Signs Vital Signs: Temp Pulse Resp BP Pulse Ox 08/25/23 17:28 93 08/25/23 17:28 94 H 08/25/23 17:26 95 08/25/23 17:26 93 H 08/25/23 17:24 96 H 08/25/23 17:24 151/77 H 08/25/23 17:21 96 08/25/23 17:21 100 H 08/25/23 17:17 94 08/25/23 17:17 93 H 08/25/23 17:16 97 08/25/23 17:16 94 H 08/25/23 17:13 108 H 08/25/23 17:13 102/61 08/25/23 17:11 100 08/25/23 17:11 92 H 08/25/23 17:10 16 08/25/23 17:08 77 08/25/23 17:08 82/57 L 08/25/23 17:06 100 08/25/23 17:06 85 08/25/23 17:03 78 08/25/23 17:03 92/54 L 08/25/23 17:01 92 08/25/23 17:01 81 08/25/23 16:58 64 08/25/23 16:58 93/54 L 08/25/23 16:57 81 08/25/23 16:57 89/53 L 08/25/23 16:56 99 08/25/23 16:56 86 08/25/23 16:51 100 08/25/23 16:51 77 08/25/23 12:48 36.7 C 98 H 20 123/69 08/25/23 12:03 98 H 123/69 Transfer of Care Handoff Completed per policy Notes Mental Status: alert / awake / arousable and participated in evaluation Patient Amnestic to Procedure: Yes Nausea / Vomiting: adequately controlled Pain: adequately controlled Airway Patency, RR, SpO2: stable & adequate BP & HR: stable & adequate Hydration State: stable & adequate Neuraxial Anesthesia: was administered and sensory block is resolving Anesthetic Complications: no major complications apparent and Pt Satisfied with anesthetic care
[2023-08-25] MEDS: KETOROLAC 30 MG/ML VIAL IV PRN ×2 (17:34→23:49)
[2023-08-25] MEDS: OXYTOCIN 30 UNITS/LR 1,003 ML IV SCH (17:39)
[2023-08-25] MEDS ORDERED: DOCUSATE SODIUM 100 MG CAP PO ONE (19:36)
[2023-08-26] MEDS: OXYTOCIN 30 UNITS/LR 1,003 ML IV SCH (01:29)
[2023-08-26 06:30] LABS: Basophils # (auto) 0.03 K/uL (0.00-0.20); Basophils % (auto) 0.3 %; Eosinophils # (auto) 0.06 K/uL (0.00-0.50); Eosinophils % (auto) 0.5 %; Hemoglobin 10.8 g/dl (12.0-16.0); Immature Granulocytes # (auto) 0.06 K/uL (0.01-0.20); Immature Granulocytes % (auto) 0.5 %; Lymphocytes % (auto) 13.7 %; Mean Corpuscular Hemoglobin 28.8 pg (25.0-34.0); Mean Corpuscular Hgb Conc 32.7 g/dL (32.0-36.0); Mean Platelet Volume 11.7 fL (9.4-12.4); Monocytes % (auto) 8.2 %; Neutrophils # (auto) 8.37 K/uL (1.40-6.50); Neutrophils % (auto) 76.8 %; Platelet Count 133 K/uL (130-400); RDW Coefficient of Variation 13.9 % (11.5-14.5); RDW Standard Deviation 44.3 fL (36.4-46.3); Red Blood Count 3.75 M/uL (4.20-5.40); White Blood Count 10.92 K/ul (4.8-10.8)
[2023-08-26] MEDS: KETOROLAC 30 MG/ML VIAL IV PRN (07:35)
[2023-08-26] MEDS ORDERED: MEPERIDINE HCL 50 MG/ML CARP IV PRN (08:52)
[2023-08-26] MEDS ORDERED: ZOLPIDEM TARTRATE 5 MG TAB PO PRN (08:52)
[2023-08-26] MEDS ORDERED: KETOROLAC 30 MG/ML VIAL IV PRN (08:52)
[2023-08-26] MEDS ORDERED: PROMETHAZINE HCL 25 MG in SODIUM CHLORIDE 0.9% 50 ML IV PRN (08:52)
[2023-08-26] MEDS ORDERED: diphenhydrAMINE Capsule 25 MG CAP PO PRN (08:52)
[2023-08-26] MEDS ORDERED: diphenhydrAMINE 50 MG/ML VIAL IV PRN (08:52)
[2023-08-26] MEDS: DOCUSATE SODIUM 100 MG CAP PO SCH ×2 (09:43→20:24)
[2023-08-26] MEDS: FERROUS SULFATE 325 MG TAB PO SCH (09:43)
[2023-08-26] MEDS: SIMETHICONE 80 MG CHEW PO SCH ×4 (09:43→20:24)
[2023-08-26] MEDS: PRENATAL VITAMIN 1 TAB PO SCH (09:43)
--- NOTE | 2023-08-26 11:47 | Obstetrical Progress Note ---
Date of Service August 26, 2023 Assessment & Plan Admission and Anticipated Discharge Date Admission Date: August 25, 2023 Subjective abdomen soft and non tender bandage removed incision is clean and dry ambulating well vaginal bleeding scant hgb 10.8 Results & Data Vital Signs (Past 12 Hours) Vital Signs Temp Pulse Pulse Resp BP BP Pulse Ox 08/26/23 10:55 36.8 C 91 H 19 91/56 L 08/26/23 09:32 37.3 C 86 18 94/57 L 08/26/23 07:59 94/58 L 08/26/23 07:16 79 88/51 L 08/26/23 07:15 16 95 08/26/23 07:15 36.4 C L 78 16 88/50 L 95 08/26/23 05:18 18 97 08/26/23 04:30 20 98 08/26/23 03:20 20 98 08/26/23 03:01 36.7 C 76 16 88/52 L 96 08/26/23 02:30 20 96 08/26/23 01:03 20 98 08/26/23 00:30 18 97 O2 Del Method 08/26/23 10:55 08/26/23 09:32 08/26/23 07:59 08/26/23 07:16 08/26/23 07:15 08/26/23 07:15 Room Air 08/26/23 05:18 08/26/23 04:30 08/26/23 03:20 08/26/23 03:01 Room Air 08/26/23 02:30 08/26/23 01:03 08/26/23 00:30
[2023-08-26] MEDS: oxyCODONE/ACETAMINOPHEN 5mg/325mg TAB PO PRN ×3 (11:50→22:22)
[2023-08-26] MEDS: IBUPROFEN 600 MG TAB PO PRN ×3 (11:50→22:22)
[2023-08-26] MEDS ORDERED: bisacodyL 5 MG TABEC PO SCH (20:00)
[2023-08-27] MEDS: oxyCODONE/ACETAMINOPHEN 5mg/325mg TAB PO PRN ×2 (02:33→09:11)
[2023-08-27] MEDS: IBUPROFEN 600 MG TAB PO PRN ×2 (02:33→09:10)
[2023-08-27 06:33] LABS: Hematocrit (blood only) 35.1 % (37.0-47.0); Hemoglobin 11.6 g/dl (12.0-16.0)
[2023-08-27] MEDS: DOCUSATE SODIUM 100 MG CAP PO SCH ×2 (09:03→09:10)
[2023-08-27] MEDS: SIMETHICONE 80 MG CHEW PO SCH (09:10)
[2023-08-27] MEDS: PRENATAL VITAMIN 1 TAB PO SCH (09:10)
[2023-08-27] MEDS: FERROUS SULFATE 325 MG TAB PO SCH (09:10)
--- NOTE | 2023-08-27 09:15 | Obstetrical Progress Note ---
Date of Service August 27, 2023 Assessment & Plan Admission and Anticipated Discharge Date Admission Date: August 25, 2023 Subjective abdomen soft and non tender incision is clean and dry no calf tenderness ambulating well vaginal bleeding scant hgb 11.6 Results & Data Vital Signs (Past 12 Hours) Vital Signs Temp Pulse Resp BP Pulse Ox O2 Del Method 08/26/23 23:30 36.8 C 88 20 94/65 L 97 Room Air
--- NOTE | 2023-08-27 09:26 | Discharge Summary ---
Date of Service August 27, 2023 Admission HPI Per Admitting Provider Patient is a 33-year-old 5 para 3 due to a's 09/07/2023. This was well established with a first trimester ultrasound. Present has been complicated by persistent nausea and vomiting. Recent hospitalization for dehydration. Obstetrical history is as follows. Delivery in 2012 8 pound female. Shoulder dystocia at 41 weeks gestation. Second delivery 2014 primary . Ruptured membranes 35 weeks gestation failure to progress weight 5 pounds. Second delivery 2018 male 8 pounds 39 weeks gestation repeat section. Patient was recently hospitalized for 2 days for correction of dehydration and electrolyte imbalance due to persistent nausea and vomiting the day of admission she states she has been vamsi since about 2 AM in the morning. She has been unable to sleep. Pelvic exam in the office revealed the cervix to be 1 cm posterior. She was admitted to maternity for evaluation. She was having regular contractions every 2 to 3 minutes. And she was breathing th rough the contractions. Diagnosed as being in active labor at 38 weeks 1 day gestation scheduled for repeat . Discharge Data Consultations 08/25/23 14:25 Consult Anesthesiology Stat Procedures Performed Operation Date: 08/25/23 15:00 Actual Procedures p Section in LD for living female child at 1606(Bilateral) - Jh Nelson MD Hospital Course (1) Labor and delivery affected by fetopelvic disproportion: (2) History of section: Plan Patient is a 32-year-old 4 para 4. Admitted at 38 weeks 1 day in active labor for repeat section. was performed without difficulty minimal bleeding. She was given prophylactic antibiotics at the time of surgery. Postoperatively the patient remained afebrile. On the second postoperative day the patient requested discharge. Patient was ambulating well eating well passing gas. Preoperative hemoglobin was 12.9 postoperative hemoglobin was 11.6. Patient was given instructions on pain control and a prescription for Percocet. Patient was instructed to return to the office in 1 week for removal of the ivelisse.
[2023-08-27] MEDS ORDERED: bisacodyL 10 MG SUPP PR PRN (16:44)
== END 2023-08-27 11:15 | disposition home or self-care (01) | DRG 788 ==
LOC: OPB 11:47 → 4S1 11:49 → 4E2 19:45